=== PATIENT | female | born 1945 | race Caucasian/White ===

== ENCOUNTER 2017-09-15 20:56 | Emergency (ER) | payer MEDICARE, OTHER ==
[~2017-09-15] VITALS: Ht 160 cm; Wt 68.0 kg
[2017-09-15 21:12] VITALS: BP 168/85; PULSE 80; RESP 18; TEMP 97.8; O2SAT 100
--- NOTE | 2017-09-15 21:12 | PD ---
HPI Chief Complaint: migraine headache Time Seen by Provider: 21:06 Travel History International Travel<30 days: No Contact w/Intl Traveler<30days: No Traveled to known affect area: No History of Present Illness HPI This lady complains of bilateral frontal throbbing headache. Duration one day. She has nausea and vomiting. She has history of migraines and says this is very similar but her called paramedics to bring her in. She denies head injury or fever or thunderclap onset. No alleviating factors. She tried Tylenol without relief. No exacerbating factors. Severity is moderate PFSH Social History Alcohol Use: No Tobacco Use: No Substance Use: No Allergies-Medications (Allergen,Severity, Reaction): Coded Allergies: codeine (Verified Allergy, Mild, 09/15/17) Reported Meds & Prescriptions Reported Meds & Active Scripts Active Tramadol (Tramadol HCl) 50 Mg Tab 50 Mg PO Q6H PRN Zofran (Ondansetron HCl) 4 Mg Tab 4 Mg PO Q6HR PRN Review of Systems General / Constitutional: No: Fever Eyes: No: Visual changes HENT: Positive: Headaches Cardiovascular: No: Chest Pain or Discomfort Respiratory: No: Shortness of Breath Gastrointestinal: Positive: Nausea, Vomiting, No: Abdominal Pain Genitourinary: No: Dysuria Musculoskeletal: No: Pain Skin: No Rash Neurologic: Positive: Headache, No: Weakness Psychiatric: No: Depression Endocrine: No: Polydipsia Hematologic/Lymphatic: No: Easy Bruising Physical Exam Narrative GENERAL: Well-nourished, well-developed patient with headache and nausea . SKIN: Focused skin assessment reveals no rash and nodules. Skin is Warm and dry. HEAD: Atraumatic. Normocephalic. EYES: Pupils equal and round. No scleral icterus. No injection or drainage. ENT: No nasal bleeding or discharge. Mucous membranes pink and moist. NECK: Trachea midline. No JVD. No meningeal signs CARDIOVASCULAR: Regular rate and rhythm. No murmur appreciated. RESPIRATORY: No accessory muscle use. Clear to auscultation. Breath sounds equal bilaterally. GASTROINTESTINAL: Abdomen soft, non-tender, nondistended. Hepatic and splenic margins not palpable. MUSCULOSKELETAL: No obvious deformities. No clubbing. No cyanosis. No edema. NEUROLOGICAL: Awake and alert. No obvious cranial nerve deficits. Motor grossly within normal limits. Normal speech. PSYCHIATRIC: Appropriate mood and affect; insight and judgment normal. Data Data Last Documented VS Vital Signs Date Time Temp Pulse Resp B/P (MAP) Pulse Ox O2 Delivery O2 Flow Rate FiO2 09/15/17 21:15 Room Air 09/15/17 21:12 97.8 80 18 168/85 (112) [address] Brain W/O Iv Contrast(Rout) (09/15/17 ) Iv Access Insert/Monitor (09/15/17 21:07) Complete Blood Count With Diff (09/15/17 21:07) Basic Metabolic Panel (Bmp) (09/15/17 21:07) Ondansetron Inj (Zofran Inj) (09/15/17 21:15) Sodium Chlor 0.9% 1000 Ml Inj (Ns 1000 M (09/15/17 21:15) Morphine Inj (Morphine Inj) (09/15/17 21:30) Labs Laboratory Tests Test 09/15/17 21:30 White Blood Count 12.4 TH/MM3 Red Blood Count 4.61 MIL/MM3 Hemoglobin 14.3 GM/DL Hematocrit 44.1 % Mean Corpuscular Volume 95.7 FL Mean Corpuscular Hemoglobin 31.1 PG Mean Corpuscular Hemoglobin Concent 32.5 % Red Cell Distribution Width 12.6 % Platelet Count 245 TH/MM3 Mean Platelet Volume 8.0 FL Neutrophils (%) (Auto) 74.5 % Lymphocytes (%) (Auto) 19.0 % Monocytes (%) (Auto) 6.0 % Eosinophils (%) (Auto) 0.2 % Basophils (%) (Auto) 0.3 % Neutrophils # (Auto) 9.3 TH/MM3 Lymphocytes # (Auto) 2.4 TH/MM3 Monocytes # (Auto) 0.7 TH/MM3 Eosinophils # (Auto) 0.0 TH/MM3 Basophils # (Auto) 0.0 TH/MM3 CBC Comment DIFF FINAL Differential Comment Blood Urea Nitrogen 24 MG/DL Creatinine 0.86 MG/DL Random Glucose 174 MG/DL Calcium Level 8.9 MG/DL Sodium Level 137 MEQ/L Potassium Level 3.6 MEQ/L Chloride Level 102 MEQ/L Carbon Dioxide Level 22.1 MEQ/L Anion Gap 13 MEQ/L Estimat Glomerular Filtration Rate 65 ML/MIN MDM Medical Decision Making Medical Screen Exam Complete: Yes Emergency Medical Condition: Yes Medical Record Reviewed: Yes Differential Diagnosis Differential diagnosis includes migraine, tension headache, cluster headache, meningitis. Narrative Course I have reviewed the patient's electronic medical record. Patient is neurologically intact Brain CT shows some small vessel ischemic disease but no hemorrhage or shift IV placed I gave her IV Zofran and IV morphine and 1 L normal saline IV bolus CBC is normal Metabolic profile is normal Had a lengthy discussion with patient and . She is sensitive medication and hesitant to take anything. I have written her some Zofran and some as needed tramadol. She will start with a half dose and see how it affects her. She does feel improved at this time. Diagnosis Primary Impression: Migraine headache Qualified Codes: G43.909 - Migraine, unspecified, not intractable, without status migrainosus Additional Impression: Nausea & vomiting Qualified Codes: R11.2 - Nausea with vomiting, unspecified Additional Instructions: The patient was advised to follow up with their physician and return if they worsen. The patient was warned about potential sedation for the medications they will receive on prescription. Med/Other Pt SpecificInfo: Prescription(s) given Scripts Tramadol (Tramadol) 50 Mg Tab 50 MG PO Q6H Y for PAIN, #20 TAB 0 Refills Prov: Santosh Ham MD 09/15/17 Ondansetron (Zofran) 4 Mg Tab 4 MG PO Q6HR Y for NAUSEA OR VOMITING, #12 TAB 0 Refills Prov: Santosh Ham MD 09/15/17 Disposition: 01 DISCHARGE HOME Condition: Stable Santosh Ham MD Sep 15, 2017 21:12
[2017-09-15] MEDS ORDERED: MORPHINE SULFATE 4 MG/ML INJ IV PUSH ONE (21:15)
[2017-09-15] MEDS ORDERED: SODIUM CHLOR 0.9% 1000 ML INJ 1,000 ML IV ONE (21:15)
[2017-09-15] MEDS ORDERED: ONDANSETRON HCL 4 MG/2 ML VIAL IVP ONE (21:15)
[2017-09-15] MEDS ORDERED: MORPHINE SULFATE 2 MG/ML INJ IV ONE (21:30)
[2017-09-15 21:36] LABS: AUTOMATED NEUTROPHIL # 9.3 TH/MM3 (1.8-7.7); BASOPHIL % 0.3 % (0.0-2.0); EOSINOPHIL % 0.2 % (0.0-4.0); HEMATOCRIT 44.1 % (35.0-46.0); HEMOGLOBIN 14.3 GM/DL (11.6-15.3); LYMPHOCYTE # 2.4 TH/MM3 (1.0-4.8); MEAN CELL VOLUME 95.7 FL (80.0-100.0); MEAN CORPUSCULAR HEMOGLOBIN 31.1 PG (27.0-34.0); MEAN CORPUSCULAR HGB CONC 32.5 % (32.0-36.0); MONOCYTE # 0.7 TH/MM3 (0-0.9); NEUT % 74.5 % (16.0-70.0); PLATELET COUNT 245 TH/MM3 (150-450); RED BLOOD COUNT 4.61 MIL/MM3 (4.00-5.30); RED CELL DISTRIBUTION WIDTH 12.6 % (11.6-17.2); WHITE BLOOD COUNT 12.4 TH/MM3 (4.0-11.0)
--- NOTE | 2017-09-15 21:45 | RADRPT ---
EXAM DATE/TIME: 09/15/2017 21:26 [facility] COMPARISON: No previous studies available for comparison. INDICATIONS : Cephalgia. RADIATION DOSE: 52.80 CTDIvol (mGy) MEDICAL HISTORY : None SURGICAL HISTORY : None. ENCOUNTER: Initial ACUITY: 1 day PAIN SCALE: 10/10 LOCATION: Bilateral frontal TECHNIQUE: Multiple contiguous axial images were obtained of the head. Using automated exposure control and adj ustment of the mA and/or kV according to patient size, radiation dose was kept as low as reasonably a chievable to obtain optimal diagnostic quality images. DICOM format image data is available electro nically for review and comparison. FINDINGS: There is no evidence for intracranial hemorrhage, mass effect, mass lesions, or edema. The visualize d bony structures appear intact. Slight degree of brain atrophy is seen. Slight periventricular whit e matter changes are seen nonspecific mostly consistent with chronic small vessel ischemic changes. There are no signs of acute infarction for technique. CONCLUSION: Slight atrophic and small vessel ischemic changes without any evidence for acute hemorrhage or mass effect. Mian Hernandez MD on September 15, 2017 at 21:43 Board Certified Radiologist. This report was verified electronically.
[2017-09-15] MEDS ORDERED: TRAM50TA PO (21:59)
[2017-09-15] MEDS ORDERED: ZOFR4TAB PO (21:59)
[2017-09-15 22:00] LABS: CALCIUM 8.9 MG/DL (8.5-10.1)
[2017-09-15 22:01] LABS: BICARBONATE 22.1 MEQ/L (21.0-32.0)
[2017-09-15 22:04] LABS: CREATININE 0.86 MG/DL (0.50-1.00)
[2017-09-15 22:34] VITALS: BP 158/87; PULSE 85; RESP 18; O2SAT 98
== END 2017-09-15 22:39 | disposition home or self-care (01) ==
LOC: PHED 20:56
DX: G43.909 Migraine, unspecified, not intractable, without status migrainosus (principal); R11.2 Nausea with vomiting, unspecified
CPT/HCPCS: 70450; 80048; 85025; 96361; 96374; 96375; 99285; J2270; J2405; J7030